=== PATIENT | male | born 1955 | race Caucasian/White ===

== ENCOUNTER → 2017-04-28 | Day surgery (SDC) | payer OTHER ==
[~2017-04-28] VITALS: Ht 177.8 cm; Wt 67.1 kg
[~2017-04-28] MED LIST: AMT25T PO; CHOL200020 PO; DICL75TA6 PO; FOLI0.4T2 PO; HYDR25SU31 RC; LORA0.5T PO; Lactated Ringer's 1,000 ML IV ONE; METO25TA6 PO; MULT-1073 PO; NICO1PAT5 TD; ONDA4SOL PO; OXYC-474 PO; PROM25TA14 PO; Propofol 10,000 mCg/mL 20 mL Inj ONE; ZOLP5TAB6 PO; fentaNYL-PF 50 mCg/mL 2 mL Inj ONE
--- NOTE | 2017-04-28 07:56 | PCM.HPANE ---
Patient Data Surgeon Admitting Provider: Attending Provider:Robert Shipman MD Primary Care Physician:Krystina Kelly DO Other Provider:Jordy Michelle Anesthesia Reason for Visit Hematochezia, Epigastric Pain Ht/WT & BMI Body Mass Index Allergies Coded Allergies: ciprofloxacin (Verified Allergy, Severe, very ill, 04/28/17) Past Anesthesia History Anesthesia History: Denies:: Abnormal Airway, Anesthesia Reactions, Difficult Intubation Diabetes History Hx Diabetes?: No Medications Hypertension Medication: Yes Home Meds Incl Beta Dalila: Yes Date Beta Dalila Taken: Apr 28, 2017 Time Beta Dalila Taken: 07:00 Reported Medications Zolpidem 5 Mg Tablet5 Mg PO HS PRN For Insomnia Ref 0 04/26/17 Oxycodone (Roxicodone)5 Mg Hdmtoz41 Mg PO Q4H PRN For Pain Ref 0 04/26/17 Promethazine 25 Mg Grsdxx10 Mg PO Q6H PRN For Nausea Ref 0 04/26/17 Ondansetron 4 Mg/5 Ml Solution4 Mg PO BID 04/26/17 Lorazepam 0.5 Mg Tablet0.5 Mg PO TID PRN For Anxiety Ref 0 04/26/17 Folic Acid 0.4 Mg Tablet0.4 Mg PO DAILY 04/26/17 Hydrocortisone Acetate (Anusol-Hc)25 Mg Supp.rect25 Mg RC BID 04/26/17 Amitriptyline 25 Mg Tab25 Mg PO HS Ref 0 04/26/17 Nicotine 14 mg/24 hr Patch 1 Each Patch.td241 Each TD DAILY 14 Days Ref 0 11/11/14 Multivits-Min/FA/Lycopene/Lut (Centrum Silver Tablet)1 Each Tablet1 Each PO DAILY 11/11/14 Metoprolol Tartrate 25 Mg Bjctpw51 Mg PO BID 30 Days Ref 0 11/11/14 Discontinued Reported Medications Diclofenac ER 75 Mg Lrrmve31 Mg PO BID 04/26/17 Cholecalciferol (Vitamin D3) (Vitamin D-3)2,000 Unit Capsule2,000 Unit PO DAILY 11/11/14 Temazepam 15 Mg Fgnffza84 Mg PO HS PRN For Insomnia 30 Days Ref 0 1-2 tabs as needed for sleep 11/11/14 History History of ENT Problems?: No HEENT History: Denies:: Abnormal Airway Denture Type: None Teeth Condition: Broken Teeth Missing Teeth Hx of Heart Problems?: No Cardiovascular History: Denies:: Chest Pain Coronary Artery Disease Hx of Respiratory Problem?: Yes Respiratory History: Positive for:: COPD Denies:: Asthma Chest Surgery Hx Neurologic Problems?: No Hx of GI Problems?: Yes Hx of Problems?: No Hx Musculoskeletal Problems?: No Hx Surgeries?: Yes History Blood Transfusions: Denies:: Blood Transfusions Hx Alcohol Use: No (quit october)Hx Substance Use: No Smoking Status: Former Smoker Have You Smoked inLast 12 mo: Yes Stop/Bang Risk Assessment Category Category 1A: Patient has history of documented sleep apnea, and HAS NOT received any narcotic, sedative or anesthesia administration during this stay. Category 1B: Patient has history of documented sleep apnea, and HAS received any narcotic , sedative or anesthesia administration during this stay Category 2: Patient has SUSPECTED Obstructive Sleep Apnea, and HAS received any narcotic , sedative or anesthesia administration during this stay. Category 3: Patient has SUSPECTED Obstructive Sleep Apnea and HAS NOT received narcotic, sedative or anesthesia administration during this stay. Category 4: Outpatient in Procedural Areas with known sleep apnea or who screen positive for High Risk via the STOP/BANG questionnaire. Exam Exam General Appearance: Alert, Oriented X3, Cooperative, No Acute Distress HEENT/AIRWAY: MP 2 Lungs: Normal Air Movement Heart: Exam Unremarkable Plan Impression Patient chart reviewed, patient interviewed and anesthestic plan with risks, benefits, and alternatives discussed, and informed consent obtained. NPO per Anesth. Guidelines: Yes ASA Physical Status: ASA3 Severe Disease (lung cancer) Anesthetic Plan: MAC Bene/Risks/Altern/Consents: Yes HP Complete Prior to Induction: Yes Alvin Ford MD Apr 28, 2017 07:56
[2017-04-28 10:33] VITALS: BP 146/89; PULSE 53; RESP 12; O2SAT 97
[2017-04-28 12:11] VITALS: BP 104/69; PULSE 59; RESP 17; O2SAT 96
--- NOTE | 2017-04-28 12:16 | PCM.ANEP1 ---
Post Anesthesia PACU Phase 1 Assessment Vital Signs Vital Signs Date Time Temp Pulse Resp B/P Pulse Ox O2 Delivery O2 Flow Rate FiO2 04/28/17 12:11 59 17 104/69 96 Room Air 04/28/17 10:33 36.9 53 12 146/89 97 Room Air Anesthetic Administered: MAC Level of Alertness: Sleepy, easy to arouse AQUINO's with Equal Strength: Yes Pain: No Nausea or Vomiting: No CV Function & Hydration Stable: Yes Airway Device: Oxygen Delivery: Simple Mask Lungs: Normal Air Movement PACU Phase 2 Assessment Complications: No Follow up Care: No Patient Instructions Provided: N/A Alvin Ford MD Apr 28, 2017 12:15
[2017-04-28 12:21] VITALS: BP 98/67; PULSE 56; RESP 17; O2SAT 96
[2017-04-28 12:32] VITALS: BP 116/82; PULSE 50; RESP 17; O2SAT 99
--- NOTE | 2017-04-28 14:25 | ENDO ---
[address] [address] ENDOSCOPY PROCEDURE PATIENT: ELIZABETH GARZA : 1955 MR#: [id number] ADMIT: 04/28/2017 JOB ID: [id number] DATE: 04/28/2017 PROCEDURE: Esophagogastroduodenoscopy (EGD). INDICATION: Epigastric pain. ANESTHESIA: Please see Dr. Ford's anesthesia report for details regarding ASA classification, Mallampati score, and medications. INSTRUMENT USED: GIF H 180 J. PROCEDURE DETAILS: After informed consent was obtained, the patient was brought into the GI suite where he was placed on oxygen via nasal cannula and monitored with continuous pulse oximeter, telemetry, and blood pressure monitoring. A time-out was performed, then he was placed in the left lateral decubitus position and medications were administered for sedation. A bite block was placed. The standard esophagogastroduodenoscopy scope was inserted through the bite block and advanced under direct visualization to the second portion of the duodenum without difficulty. FINDINGS: 1. Normal appearing duodenal bulb, first and second portion. Multiple random biopsies were obtained. 2. Normal-appearing pylorus, antrum, and gastric body. 3. Multiple random biopsies were obtained throughout the antrum and body of the stomach. 4. Retroflexed views in the gastric body revealed a diminutive nodule in the fundus that had whitish mucosa overlying. The nodule was biopsied completely. 5. The GE junction was at approximately 48 cm. There were two tongues of salmon-colored mucosa arising up to 45 cm suggestive of Morales's. Multiple biopsies were obtained. The remainder of the esophagus was otherwise unremarkable. IMPRESSION: 1. Nodule in the fundus of the stomach. 2. 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 RECOMMENDATIONS: 1. Await biopsy results. 2. Proceed to colonoscopy. PROCEDURE PERFORMED: Colonoscopy. INDICATION: Rectal bleeding. ANESTHESIA: Please see above for ASA classification, Mallampati score, and medications. INSTRUMENT USED: PCF H 190 DL PREPARATION QUALITY: Fair. PROCEDURE DETAILS: After completion of the EGD exam, the patient was turned and a digital rectal exam was performed which was unremarkable. The colonoscope was then inserted into the rectum and advanced under direct visualization to the cecum, which was identified by the presence of the ileocecal valve and appendiceal orifice. Once the cecum was reached, the colonoscope was withdrawn back into the rectum as the mucosa and lumen were examined. In the rectum, retroflexion was performed. Following retroflexion, the remaining air in the rectum was suctioned and the procedure was completed. FINDINGS: 1. In the transverse colon there was an approximately 7-8 mm polyp that was removed with a hot snare. 2. In the descending colon there was an approximately 7 mm pedunculated polyp that was removed with a hot snare. 3. In the sigmoid colon there was an approximately 7 mm sessile polyp removed with a hot snare. 4. Just distal to this there was an approximately 6 mm pedunculated polyp that was removed with a hot snare. Following removal of this polyp there was some bleeding at the polypectomy site, therefore one hemoclip was placed for bleeding cessation. 5. In the rectosigmoid junction there was a large polyp. I was unable to see the proximal and distal portion of the polyp well, as this was on what appeared to be the sigmoid turn. Dhara ink was injected distal to and proximal to the polyp. At this point General Surgery was consulted and Dr. Ordaz from the General Surgery service was present for visualization of this large polyp that we were unable to remove. 6. Retroflexed views in the rectum revealed moderate-sized internal hemorrhoids. IMPRESSION: 1. Transverse colon polyp. 2. Descending colon polyp. 3. Two sigmoid polyps. 4. Rectosigmoid polyp not removed. RECOMMENDATIONS: 1. Follow up with Dr. Qing Ordaz for surgical consultation regarding removal of rectosigmoid polyp. 2. Avoid NSAIDs and anticoagulants for 72 hours. COMPLICATIONS: None. ESTIMATED BLOOD LOSS: Less than 5 mL.
--- NOTE | 2017-05-02 12:47 | PATH ---
SURGICAL PATHOLOGY Attending Physician:Shyam Rodriguez CASE STATUS: Signed Out PATIENT NAME: ELIZABETH GARZA PID: [id number] : 1955 DATE COLLECTED:04/27/2017 00:00 SPECIMEN: 1: Duodenum, Biopsy 2: Stomach, Biopsy 3: Gastric, Biopsy 4: Esophagus, Biopsy 5: Colon, Polyp 6: Colon, Polyp 7: Colon, Polyp CLINICAL HISTORY: 1). DUODENAL BIOPSY 2). FUNDIC NODULE BIOPSY 3). GASTRIC BIOPSY AND RULE OUT H PYLORI 4). DISTAL ESOPHAGUS BIOPSY 5). TRANSVERSE COLON POLYP X 1 6). DESCENDING COLON POLYP X 1 7). SIGMOID COLON POLYP X 2 FINAL DIAGNOSIS: 1. Duodenum, Biopsy: Small bowel mucosa with no diagnostic abnormality. Negative for active inflammation, features of sprue, dysplasia or malignancy. 2. Fundic Nodule, Biopsy: Gastric body mucosa with prominent benign lymphoid aggregate. No evidence of Helicobacter organisms on H&E stain. Negative for intestinal metaplasia, dysplasia or malignancy. 3. Stomach, Biopsy: Gastric body mucosa with no diagnostic abnormality. No evidence of Helicobacter organisms on H&E stain. Negative for intestinal metaplasia, dysplasia or malignancy. 4. Distal Esophagus, Biopsy: Squamocolumnar junctional mucosa with chronic, mildly active inflammation. Negative for intestinal metaplasia, dysplasia or malignancy. 5. Transverse Colon Polyp, Biopsy: Tubular adenoma. 6. Descending Colon Polyp, Biopsy: Tubular adenoma. 7. Sigmoid Colon Polyps x2, Polypectomies: Tubular adenoma x1. Tubulovillous adenoma x1. ICD10: R10.13 D12.6 GROSS DESCRIPTION: The specimen is received in seven formalin filled containers labeled with the patient's name. 1). The specimen is labeled "duodenum" and consists of 2 portions of tissue which aggregate to 0.2 x 0.2 x 0.2 CM. The specimen is entirely submitted in cassette 1A. 2). The specimen is labeled "fundic nodule" and consists of 2 portions of tissue which aggregate to 0.3 x 0.3 x 0.2 CM. The specimen is entirely submitted in cassette 2A. 3). The specimen is labeled "gastric" and consists of 2 portions of tissue which aggregate to 0.2 x 0.2 x 0.2 CM. The specimen is entirely submitted in cassette 3A. 4). The specimen is labeled "distal esophagus" and consists of 2 portions of tissue which aggregate to 0.3 x 0.3 x 0.2 CM. The specimen is entirely submitted in cassette 4A. 5). The specimen is labeled "transverse polyp" and consists of a 0.3 x 0.3 x 0.3 CM portion of tissue which is entirely submitted in cassette 5A. 6). The specimen is labeled "descending polyp" and consists of 2 portions of tissue which aggregate to 0.5 x 0.5 x 0.4 CM. The specimen is entirely cemented in cassette 6A. 7). The specimen is labeled "sigmoid polyp" and consists of 2 portions of tissue which aggregate to 0.9 x 0.5 x 0.5 CM. Both fragments are bisected and entirely submitted in cassette 7A. 04/28/2017MS ICD-9 CODES: CPT CODES: 1: 37959 2: 14751 3: 17971 4: 22274 5: 63345 6: 28406 7: 61087 Electronically Signed Out Cliff Germain MD, Ph.D. [facility] [address], [place] [address] Technical component performed at [facility], [facility] [address], [place], [address]
== END | disposition home or self-care (01) ==
LOC: END 00:41
PROVIDERS: ATTEND Internal Medicine Gastroenterology
DX: K92.1 Melena (principal); D12.3 Benign neoplasm of transverse colon; D12.4 Benign neoplasm of descending colon; D12.5 Benign neoplasm of sigmoid colon; K31.7 Polyp of stomach and duodenum; K21.9 Gastro-esophageal reflux disease without esophagitis; F17.210 Nicotine dependence, cigarettes, uncomplicated
CPT/HCPCS: 43239; 45381; 45385; J2250; J2704; J3010; J7120